=== PATIENT | female | born 1980 | race Caucasian/White ===

== ENCOUNTER 2016-05-12 18:26 | Emergency (ER) | payer BC ==
--- NOTE | 2016-05-12 20:48 | ERNOTE ---
Medical Problem HPI - General Chief Complaint: General Assessment Time Seen by Provider: 05/12/16 20:50 Source: patient, family, old records Exam Limitations: no limitations - Immun/Allergies/Home Medications Immunizations: IMMUNIZATION HX Immunizations Up to Date Yes History of Influenza Vaccine No Allergies/Adverse Reactions: Allergies No Known Allergies Allergy (Verified 05/12/16 18:54) Home Medications: HOME MEDICATIONS Amox Tr/Potassium Clavulanate [Augmentin 875-125 Tablet] 875 mg PO Q12H [Last Taken Unknown] Cetirizine HCl/Pseudoephedrine [Zyrtec-D Tablet] 1 each PO DAILY 05/12/16 [Last Taken Unknown] Fluticasone Propionate [Flonase] 2 spray NS BID 05/12/16 [Last Taken Unknown] acetaZOLAMIDE [Diamox Sequels] 500 mg PO BID #15 capsule 05/12/16 [Last Taken Unknown] - History of Present History Narrative: Pt was diagnosed with idiopathic intracranial hypertension at the [facility] 3 days ago. She has been having worsening visual symptoms and spoke with Neuro Ophthalmology at the [facility] multiple times today. they offered to see her there in the ED but she declined due to the long drive and wait she had the last time she was up there. They suggested that she could go to her local ED, and she presented here. Timing: getting worse, intermittent Severity: mild, moderate Review of Systems - Review of Systems Constitutional: Absent: fever, chills EYE: Present: blurred vision, vision changes - defect in field of vision left lower temporal field that is waxing and waning. ENT: Present: no symptoms reported Respiratory: Present: no symptoms reported Cardiology: Present: no symptoms reported Gastrointestinal/Abdominal: Present: no symptoms reported Genitourinary: Present: no symptoms reported Musculoskeletal: Present: no symptoms reported Skin: Present: no symptoms reported Neurological: Present: headache, dizziness/light-headedness Endocrine: Present: no symptoms reported Hematologic/Lymphatic: Present: no symptoms reported Psych: Present: no symptoms reported - Patient's Past Medical History Patient History - Medical: Headache, Other - ideopathic intracranial hypertension Patient History - Cancer: No Hx of Cancer Patient History - Surgical Procedures: Appendectomy - Social History Living Situations: home Smoking Status: Former smoker Alcohol Use: none Drug Use: none Physical Exam - Physical Exam General Appearance: Present: wd/wn, alert, no apparent distress Eye Exam: PERRL: bilateral, EOMI: bilateral, Other: bilateral - papillary edema with increased vascularity of optic disc Ears, Nose, Throat: Present: normal ENT inspection Neck: Present: normal inspection, nontender Respiratory: Present: no respiratory distress, no accessory muscle use Back Exam: Present: normal inspection, normal range of motion Extremity Exam: Present: normal inspection, non-tender, no edema, normal range of motion Neurological Exam: Present: alert, oriented, normal mood/affect, no motor/ sensory deficits, customer service sales consultant II-XII nml as tested, other - no nystagmus Skin Exam: Present: normal color, warm/dry Lymphatic Exam: Present: no adenopathy ED Progress - Results and Orders Patient's Lab Results:: I have reviewed the patient's lab results. Results and Orders: Laboratory Tests 05/12/16 05/12/16 22:15 22:15 CSF Appearance Clear CSF Color Colorless CSF WBC 0.5 CSF RBC 0.5 CSF Glucose 52 CSF Total Protein 22.7 - Vital Signs Patient's Vital Signs:: I have reviewed the patient's vital signs. Vital Signs: Vital Signs 05/12/16 05/12/16 18:47 19:05 Temperature 36.4 C L Pulse Rate 88 80 Respiratory 18 13 Rate Blood Pressure 140/96 124/75 O2 Sat by Pulse 98 99 Oximetry - Progress/Reassessment Chief Complaint: General Assessment Progress:: Improved Progress Note-Subjective: 05/12/16 21:15 Called [facility] and spoke with Opthalmology resident Dr. Jaime Retana. He confirmed that it would be beneficial to get a lumbar puncture and large volume tap, with opening pressure and the usual CSF studies. I spoke with Kenny Ewing CRNA and he agreed to come in and perform the LP. 05/12/16 23:01 Pt feeling better and visual symptoms have resolved since the LP. Awaiting CSF studies 05/12/16 23:39 Pt given acetazolamide 500 mg PO x 1 in the ED and Rx for 500 mg PO BID as recommended by Ophthalmology at the [facility] if her opening pressure was above 25, her opening pressure was 53. 05/12/16 23:43 Departure - Departure Clinical Impression: Idiopathic intracranial hypertension Disposition: Home Follow Up Needed Condition: Good Instructions: Idiopathic Intracranial Hypertension Additional Instructions: keep your appointment with the [facility]. Take prescription as directed Prescriptions: acetaZOLAMIDE [Diamox Sequels] 500 mg PO BID #15 capsule
--- NOTE | 2016-05-12 22:39 | OR ---
Anesthesia Procedure Note - Anesthesia Procedure Note Narrative: Vital Signs - Last Taken Temp 36.4 C L 05/12/16 18:47 Pulse 95 05/12/16 21:43 Resp 16 05/12/16 21:43 BP 141/90 05/12/16 21:43 Pulse Ox 98 05/12/16 21:43 O2 Oxygen Delivery Method Room Air 05/12/16 22:35 ANESTHESIA PROCEDURE NOTE Date of procedure: 05/12/2016. Time of procedure: 2149. Performed by: Kenny Ewing CRNA Medical Director Occupational Health: None . Preprocedure diagnosis: Idiopathic intracranial hypertension. Post procedure diagnosis: Same. Procedure: Lumbar puncture Indications: Spinal fluid analysis with pressure measurements. Findings: Patient placed in a sitting position. Her back was prepped with DuraPrep. 5 mL of 1% lidocaine was used to localize skin surface and subcutaneous tissue at the L3 4 interspace. Thorough was punctured at L3 4 interspace with a 22-gauge Manzo spinal needle. Patient was then placed in a right lateral decubitus position while maintaining needle placement and sterility. Opening pressure was measured at 53. A total of 16 mL of clear CSF was obtained. 2 mL in each of the first 3 vials, and 10 mL in the fourth vial. Closing pressure was measured at 22. Spinal needle was removed intact and a Band-Aid was applied to the puncture site. EBL: Minimal. Fluids: N/A. Specimen: N/A. Post procedure condition: The patient tolerated the procedure well. No complications were noted. Thank you for this consultation Kenny Ewing CRNA
[2016-05-12 23:17] LABS: CSF Appearance Clear (CLEAR); CSF Color Colorless (COLORLESS); CSF RBC 0.5 /uL (0-10); CSF WBC 0.5 /uL (0-10)
[2016-05-12 23:49] LABS: CSF Lymphocytes 100 % (0-100)
[2016-05-12 23:56] VITALS: BP 166/91
== END 2016-05-12 23:56 | disposition home or self-care (01) ==
LOC: ER 18:26
PROC: 009U3ZX Drainage of Spinal Canal, Percutaneous Approach, Diagnostic (ICD-10-PCS; principal; 2016-05-12)
DX: G93.2 Benign intracranial hypertension (principal); Z87.891 Personal history of nicotine dependence

== ENCOUNTER 2017-03-20 00:14 | Emergency (ER) | payer BC, OTHER ==
[2017-03-20 00:54] LABS: Hematocrit 35.6 % (37.0-47.0); Hemoglobin 11.9 gm/dL (12.5-16.0); Mean Cell Volume 83.8 fl (78-100); Mean Corpuscular Hgb Conc 33.4 g/dl (32-36); Mean Platelet Volume 8.9 fl (6.0-9.5); Neutrophil # 4.7 K/mm3 (1.3-6.0); Neutrophil % 52.5 % (42-75.0); Platelet Count 388 K/mm3 (150-450); Red Blood Count 4.25 M/mm3 (4.2-5.4)
[2017-03-20 01:04] LABS: Prothrombin Time (Patient) 9.4 Seconds (9.0-11.0)
[2017-03-20 01:05] LABS: INR 0.94 INR (0.90-1.10); Partial Thrombolplastin Time 25.9 Seconds (24-32)
[2017-03-20 01:11] LABS: ALT 51 U/L (19-67); AST 22 U/L (0-48); Albumin * 3.2 gm/dl (3.4-5.0); Alkaline Phosphatase * 74 U/L (50-170); Anion Gap 13.1 mmol/L (6.8-13.8); BUN/Creatinine Ratio 21.4 (9.0-21.6); Bilirubin, Total 0.4 mg/dL (0.0-1.1); Blood Urea Nitrogen 18 mg/dL (3-23); Ca. Corrected For Albumin 8.8 mg/dL (8.4-10.2); Calcium * 8.5 mg/dL (7.9-10.9); Carbon Dioxide 27.6 mmol/L (24-32.6); Chloride 104 mmol/L (97-106); Glucose * 114 mg/dL (70-110); Potassium 3.7 mmol/L (3.4-4.6); Sodium 141 mmol/L (132-142); Troponin I Less than 0.017 ng/ml (0.00-0.10)
[2017-03-20 01:34] LABS: Urine Appearance Clear; Urine Bilirubin Negative (NEGATIVE); Urine Blood Negative /ul (NEGATIVE); Urine Color Yellow; Urine Ketone Negative (NEGATIVE); Urine Nitrite Negative (NEGATIVE); Urine Protein Negative (NEGATIVE); Urine Specific Gravity 1.015 SP.GR. (1.005-1.010); Urine Urobilinogen Normal (NORMAL); Urine pH 7.5 pH (5.0-7.0)
[2017-03-20 01:35] LABS: Urine Bacteria None Seen; Urine RBC 0-5 /hpf (0-5); Urine WBC 0-5 /hpf (0-5)
--- NOTE | 2017-03-20 02:00 | ERNOTE ---
Chest Pain/Cardiac HPI Date of Service: 03/20/17 Chief Complaint: Chest Pain Time Seen by Provider: 03/20/17 00:31 Source: patient Exam Limitations: no limitations Immunizations: IMMUNIZATION HX Immunizations Up to Date Yes History of Influenza Vaccine No Allergies/Adverse Reactions: Allergies No Known Allergies Allergy (Verified 03/20/17 00:29) Home Medications: HOME MEDICATIONS NK [No Home Medication] 03/20/17 [Last Taken Unknown] Narrative: patient was sleeping and woke up with arm numbness radiating into chest, pain lasted ten minutes and has now resolved Timing: resolved prior to arrival Severity/Quality: moderate, aching, sharp, stabbing Location: central Chest Pain Radiation: arms Activities at Onset: sleep Modifying Factors - Worsens: Present: nothing Nitro Today/Relief: no nitro taken today Aspirin Treatment Today: no aspirin today Associated Symptoms: Present: denies symptoms Prior Chest Pain/Cardiac Workup: Reports: no prior cardiac workup Prior Treatment: Reports: other - no prior treatment Review of Systems - Review of Systems Constitutional: Present: See HPI EYE: Present: no symptoms reported ENT: Present: no symptoms reported Respiratory: Present: See HPI Cardiology: Present: See HPI Gastrointestinal/Abdominal: Present: no symptoms reported Genitourinary: Present: frequency Neurological: Present: no symptoms reported Endocrine: Present: no symptoms reported Hematologic/Lymphatic: Present: no symptoms reported Psych: Present: no symptoms reported - Patient's Past Medical History Patient History - Medical: Headache Patient History - Cardiac/Respiratory: No pertinent hx Patient History - Cancer: No Hx of Cancer Patient History - Surgical Procedures: Appendectomy, Cholecystectomy Patient History - Other: None LMP (females 10-50): last week - Family History Family History:: no untoward family reactions to anesthesia, no familial bleeding tendencies, no family history of clotting disorders, no family history of premature - Social History Living Situations: home Psych History: No pertinent hx Does anyone smoke in the home?: No Smoking Status: Former smoker Have you smoked in the past 12 months: No Do you dip or chew tobacco: No Patient requests Smoking Cessation Consult: No Alcohol Use: none - Immunizations Immunizations Up to Date: Yes History of Influenza Vaccine: No Physical Exam - Physical Exam General Appearance: Present: no apparent distress Head Exam: Present: normal inspection, no evidence of injury Eye Exam: Normal inspection: bilateral, PERRL: bilateral, EOMI: bilateral Ears, Nose, Throat: Present: normal ENT inspection Neck: Present: normal inspection, nontender Respiratory: Present: no respiratory distress, normal breath sounds, no accessory muscle use, chest nontender, lungs clear Cardiovascular/Chest: Present: regular rate, rhythm, no murmur Peripheral Pulses: N=norm/S=strong/W=weak/B=bound/A=absent: Carotid (R): Normal , Carotid (L): Normal, Radial (R): Normal, Radial (L): Normal, Femoral (R): Normal, Femoral (L): Normal, Dorsalis-pedis (R): Normal, Dorsalis-pedis (L): Normal Gastrointestinal/Abdominal: Present: normal bowel sounds, nondistended, soft, no organomegaly Rectal Exam: Present: nontender, normal rectal tone Back Exam: Present: no CVA tenderness, no vertebral tenderness Extremity Exam: Present: normal inspection, non-tender, normal range of motion, no edema Neurological Exam: Present: alert, oriented, normal mood/affect, no motor/ sensory deficits DTR: N=norm/NB=norm/brisk/A=abs/DD=dull/dimin/HC=hyperactive: Bicep (R): Normal , Bicep (L): Normal, Tricep (R): Normal, Tricep (L): Normal, Knee (R): Normal, Knee (L): Normal, Ankle (R): Normal Skin Exam: Present: normal color, warm/dry Lymphatic Exam: Present: no adenopathy ED Progress - Results and Orders Patient's Lab Results:: I have reviewed the patient's lab results. - Vital Signs Patient's Vital Signs:: I have reviewed the patient's vital signs. Vital Signs: Vital Signs 03/20/17 03/20/17 03/20/17 00:24 01:04 01:15 Temperature 36.9 C Pulse Rate 94 86 88 Respiratory 18 20 Rate Blood Pressure 132/78 122/77 O2 Sat by Pulse 100 98 Oximetry - EKG EKG: NSR EKG read: Interp. by me - X-Ray no acute process on cxr Interpretation: Reviewed by me - Progress/Reassessment Chief Complaint: Chest Pain Progress:: Improved Plan - Plan Plan: patient to be dismissed Departure Clinical Impression: Chest pain at rest - Departure Disposition: Home self-care Condition: Good Instructions: Chest Wall Pain, [id number]
[2017-03-20 04:18] VITALS: BP 113/68
== END 2017-03-20 02:03 | disposition home or self-care (01) ==
LOC: ER 00:14
DX: R07.9 Chest pain, unspecified (principal)